=== PATIENT | female | born 1995 | race Caucasian/White ===

== ENCOUNTER 2017-09-07 12:15 | Emergency (ER) | payer MEDICAID ==
[~2017-09-07] VITALS: Ht 162.6 cm; Wt 68.5 kg
--- NOTE | 2017-09-07 12:19 | NUR ---
EKG PERFORMED IN TRIAGE.
[2017-09-07 12:23] VITALS: BP 127/75
--- NOTE | 2017-09-07 12:29 | NUR ---
EKG SHOWN TO DR. HERNANDEZ. PT IS STABLE TO WAIT IN ER LOBBY FOR A BED/OF CHAIR.
--- NOTE | 2017-09-07 12:34 | NUR ---
PATIENT TO OF#1
--- NOTE | 2017-09-07 13:09 | NUR ---
PATIENT MOVED TO BED #3 MONITORED
--- NOTE | 2017-09-07 13:15 | NUR ---
PATIENT PRESENTS TO ED WITH C/O CP AND SOB X 4-5 DAYS . PT STATES SHE FEELS LIKE A PRESSURE TYPE PAIN. DENIES N/V/D; SKIN IS PINK/WARM/DRY; AAOX4 WITH EVEN AND STEADY GAIT; LUNGS CLEAR BL; HR EVEN AND REGULAR; PT DENIES ANY FEVER OR COUGH AT THIS TIME; PATIENT STATES PAIN OF 3/10 AT THIS TIME;PATIENT POSITIONED FOR COMFORT; HOB ELEVATED; BEDRAILS UP X2; BED DOWN. ALL MONITORS IN PLACED;ER MD MADE AWARE OF PT STATUS.
--- NOTE | 2017-09-07 13:29 | NUR ---
DR HERNANDEZ EVALUATING PT.
--- NOTE | 2017-09-07 13:43 | NUR ---
LAB AT BEDSIDE
[2017-09-07 13:53] LABS: BASOPHILS # (AUTO) 0.2 K/uL (0.00-0.22); BASOPHILS % (AUTO) 2.3 % (0.0-2.0); EOSINOPHILS # (AUTO) 0.1 K/uL (0-0.4); EOSINOPHILS % (AUTO) 0.9 % (0.0-4.0); HEMATOCRIT 41.8 % (36-48); HEMOGLOBIN 13.8 g/dL (12.0-16.0); LYMPHOCYTES # (AUTO) 0.9 K/uL (2.5-16.5); LYMPHOCYTES % (AUTO) 9.8 % (20.5-51.1); MEAN CORPUSCULAR HEMOGLOBIN 30 pg (27-31); MEAN CORPUSCULAR HGB CONC 33 g/dL (33-37); MEAN CORPUSCULAR VOLUME 92 fL (80-94); MONOCYTES # (AUTO) 0.8 K/uL (0.8-1.0); MONOCYTES % (AUTO) 8.7 % (1.7-9.3); NEUTROPHILS # (AUTO) 7.6 K/uL (1.8-7.7); NEUTROPHILS % (AUTO) 78.3 % (42.2-75.2); PLATELET COUNT (AUTO) 240 K/uL (140-450); RED BLOOD CELL COUNT(AUTO) 4.55 MIL/uL (4.20-5.40); RED CELL DISTRIBUTION WIDTH 12.1 % (11.6-13.7); WHITE BLOOD COUNT (AUTO) 9.6 K/uL (4.8-10.8)
[2017-09-07 14:18] LABS: ALBUMIN 3.9 g/dL (3.4-5.0); ANION GAP 10.3 (8-16); CREATININE 0.5 mg/dL (0.6-1.3); POTASSIUM 4.3 mmol/L (3.5-5.1); TOTAL BILIRUBIN 0.6 mg/dL (0.0-1.0)
[2017-09-07 15:16] VITALS: BP 110/68
--- NOTE | 2017-09-07 15:16 | NUR ---
Patient discharged with v/s stable. Written and verbal after care instructions given and explained. Patient verbalized understanding. Ambulatory with steady gait. All questions addressed prior to discharge. Advised to follow up with PMD.
== END 2017-09-07 15:16 | disposition home or self-care (01) ==
LOC: MED 12:15
DX: R07.89 Other chest pain (principal); R06.02 Shortness of breath; R00.2 Palpitations
CPT/HCPCS: 36415; 71045; 80053; 83880; 84443; 84484; 85025; 93005; 99285; Q0092

== ENCOUNTER 2023-03-18 06:19 | Inpatient (IN) | payer MEDICAID ==
[~2023-03-18] VITALS: Ht 165.1 cm; Wt 71.7 kg
[2023-03-18 06:25] VITALS: BP 115/66; PULSE 122; RESP 16; TEMP 98.2; O2SAT 98
--- NOTE | 2023-03-18 06:28 | NUR ---
to lobby a/w bed ambulatory
[2023-03-18] MEDS ORDERED: ACETAMINOPHEN EXTRA STRENGTH 500 MG TAB PO ONE (06:45)
[2023-03-18] MEDS ORDERED: LIDOCAINE 5% 1 EA PATCH TP SCH (06:45)
[2023-03-18 07:06] LABS: BASOPHILS % (AUTO) 0.2 % (0.0-2.0); EOSINOPHILS % (AUTO) 0.1 % (0.0-4.0); HEMATOCRIT 35.5 % (36-48); HEMOGLOBIN 12.2 g/dL (12.0-16.0); LYMPHOCYTES % (AUTO) 6.3 % (20.5-51.1); MEAN CORPUSCULAR HEMOGLOBIN 31 pg (27-31); MEAN CORPUSCULAR HGB CONC 34 g/dL (33-37); MEAN CORPUSCULAR VOLUME 89.1 fL (80-94); MONOCYTES % (AUTO) 6.5 % (1.7-9.3); NEUTROPHILS # (AUTO) 13.1 K/uL (1.8-7.7); NEUTROPHILS % (AUTO) 86.9 % (42.2-75.2); PLATELET COUNT (AUTO) 276 K/uL (140-450); RED BLOOD CELL COUNT(AUTO) 3.98 MIL/uL (4.20-5.40); RED CELL DISTRIBUTION WIDTH 13.2 % (11.6-13.7)
--- NOTE | 2023-03-18 07:25 | NUR ---
REPORT RECEIVED FROM HERIBERTO CHU. ASSUMED CARE AT THIS TIME
--- NOTE | 2023-03-18 07:30 | NUR ---
pt awake and at rest. states pain relief. hob positioned per comfort. bed at lowest position, bed rails upx2. call light within reach.
[2023-03-18 07:32] LABS: ANION GAP 14.5 (8-16); CARBON DIOXIDE 24.1 mmol/L (21-32); CREATININE 0.5 mg/dL (0.6-1.3); POTASSIUM 3.6 mmol/L (3.5-5.1); TOTAL BILIRUBIN 0.6 mg/dL (0.0-1.0)
[2023-03-18 07:45] VITALS: O2SAT 98
--- NOTE | 2023-03-18 07:45 | NUR ---
28YO FEMALE PT C/O CRAMPING LOWER ABD PAIN AND NAUSEA X3DAYS. REPORTS RECENT +. LMP 12/16/22 G1A0. DENIES V/D, CHEST PAIN, SOB, FEVER , CHILLS OR TAKING MEDICATION. PT AAOX4, HOB POSITIONEDE PER COMFORT. ON RESIDENTIAL APPRAISER. CALL LIGHT WITHIN REACH. HX: DENIES NKA
[2023-03-18] MEDS ORDERED: cefTRIAXone 1,000 MG VIAL ONE (07:56)
[2023-03-18 07:57] LABS: APPEARANCE,URINE CLEAR (CLEAR); BILIRUBIN,URINE NEGATIVE (NEGATIVE); BLOOD, URINE TRACE-I (NEGATIVE); COLOR,URINE YELLOW (YELLOW); LEUKOCYTE ESTERASE ,URINE 2+ (NEGATIVE); NITRITE, URINE POSITIVE (NEGATIVE); UGLUCOSE 1+ (NEGATIVE)
--- NOTE | 2023-03-18 08:00 | NUR ---
MD PETTY AT BEDSIDE FOR EVALUATION
[2023-03-18] MEDS ORDERED: METOCLOPRAMIDE 10 MG/2 ML INJ VIAL IVP ONE (08:10)
[2023-03-18] MEDS ORDERED: NACL 0.9% 1,000 ML IV ONE ×2 (08:10→08:45)
[2023-03-18 08:41] LABS: RBC,URINE 11-20 (MOD) /HPF (0-5); TRICHOMONAS,URINE None Seen /HPF (None Seen); YEAST,URINE None Seen /HPF (None Seen)
--- NOTE | 2023-03-18 13:21 | NUR ---
PT OOB TO RESTROOM.
--- NOTE | 2023-03-18 13:28 | NUR ---
Tolu to be transferred to MED/SURG. Reviewed nursing notes, lab reports,Physicians Orders. Report called to Fidel. Pt transfered by w/chau
[2023-03-18 13:45] VITALS: PULSE 76; RESP 18; TEMP 98.5; O2SAT 98
--- NOTE | 2023-03-18 13:45 | NUR ---
PATIENT ARRIVED ON MST UNIT, ABLE TO AMBULATE TO BED WITH STEADY GAIT. NO DISTRESS NOTED. PAIN WITHIN TOLERABLE. IV SITE INTACT, PATENT. ORIENTED PATIENT TO ROOM AND CALL LIGHT. REVIEWED PLAN OF CARE WITH PATIENT. VERBALIZED UNDERSTANDING. SAFETY MEASURES IN PLACE, CALL LIGHT WITHIN REACH. WILL CONTINUE TO MONITOR.
--- NOTE | 2023-03-18 17:00 | NUR ---
PATIENT LYING DOWN IN BED, MOTHER AT BEDSIDE. NO DISTRESS NOTED. PAIN WITHIN TOLERABLE. WILL CONTINUE TO MONITOR.
[2023-03-18] MEDS: NACL 0.9% 1,000 ML IV SCH (18:26)
--- NOTE | 2023-03-18 19:05 | NUR ---
Pt resting in bed, complains of mild pain 5/10, offered pain medication, patient refused pain medication at the moment. Call light within reach, bed at lowest position. Plan of care discussed, patient verbalizes understanding. Pt educated on proper elicia care. Patient verbalizes understanding.
--- NOTE | 2023-03-18 19:20 | NUR ---
GAVE REPORT TO PROOF COIN COLLECTOR NURSE FOR CONTINUITY OF CARE. PATIENT IN STABLE CONDITION.
[2023-03-18 20:00] VITALS: PULSE 98; RESP 18; O2SAT 99
--- NOTE | 2023-03-18 20:00 | NUR ---
pt denies any pain at the moment, currently watching TV and comfortable in bed.
[2023-03-18] MEDS: ACETAMINOPHEN 325 MG TAB PO PRN (21:55)
--- NOTE | 2023-03-19 | NUR ---
PATIENT IS ASLEEP. BREATHING EVEN AND UNLABORED. CALL LIGHT REMAINS WITHIN REACH.
--- NOTE | 2023-03-19 02:10 | NUR ---
PATIENT IS RESTING ON BED, CALL LIGHT WITHIN REACH. BREATHING IS UNLABORED. DENIES ANY PAIN OR DISCOMFORT AT THE MOMENT.
[2023-03-19] MEDS: NACL 0.9% 1,000 ML IV SCH ×3 (03:40→23:19)
[2023-03-19 04:00] VITALS: BP 106/43; PULSE 95; RESP 18; TEMP 97.7; O2SAT 99
[2023-03-19 06:11] LABS: HEMATOCRIT 32.1 % (36-48); MEAN CORPUSCULAR HEMOGLOBIN 31 pg (27-31); MEAN CORPUSCULAR HGB CONC 34 g/dL (33-37); MEAN CORPUSCULAR VOLUME 89.4 fL (80-94); PLATELET COUNT (AUTO) 237 K/uL (140-450); RED BLOOD CELL COUNT(AUTO) 3.59 MIL/uL (4.20-5.40); RED CELL DISTRIBUTION WIDTH 13.2 % (11.6-13.7); WHITE BLOOD COUNT (AUTO) 13.6 K/uL (4.8-10.8)
[2023-03-19 06:33] LABS: ANION GAP 13.4 (8-16); CREATININE 0.4 mg/dL (0.6-1.3); POTASSIUM 3.4 mmol/L (3.5-5.1)
--- NOTE | 2023-03-19 06:54 | NUR ---
PT IS ASLEEP I N BED, CALL LIGHT WITHIN REACH. RESPIRATION UNLABORED. SAEFTY MEASURES IMPLEMENTED THROUGH OUT THE SHIFT. NO DISTRESS OR DISCOMFORT NOTED.
[2023-03-19 08:00] VITALS: BP 110/77; PULSE 100; PULSE 96; RESP 18; TEMP 99; O2SAT 100
--- NOTE | 2023-03-19 08:00 | NUR ---
NURSE REPORT REPORT OBTAINED FROM CARE TECHNICIAN NURSE JESSICA AND THIS NURSE ASSUMED CARE OF PATIENT. VSS. AFEB. NO C/O PAIN OR DISCOMFORT. MED SURG. GLORIA MONTIEL RN
[2023-03-19 08:05] LABS: LYMPHOCYTES % (MANUAL) 5 % (20-46); MONOCYTES % (MANUAL) 9 % (5-12)
--- NOTE | 2023-03-19 09:14 | NUR ---
PATIENT HAS BEEN SCREENED AND CATEGORIZED HIGH NUTRITION RISK. PATIENT WILL BE SEEN WITHIN 1-2 DAYS OF ADMISSION. 03/18/23-03/20/[address] REFERRAL RECEIVED FOR NAUSEA > 3 DAYS
[2023-03-19] MEDS: ACETAMINOPHEN 325 MG TAB PO PRN ×3 (09:32→22:09)
--- NOTE | 2023-03-19 10:32 | NUR ---
NURSE NOTES ACETAMINOPHEN 650 MG PO GIVEN FOR ABREU WITH RELIEF. GLORIA MONTIEL RN
--- NOTE | 2023-03-19 14:58 | NUR ---
03/19/23 RD INITIAL ASSESSMENT COMPLETED. PLEASE REFER TO NUTRITION ASSESSMENT UNDER CARE ACTIVITY FOR ESTIMATED NUTRITIONAL NEEDS. 1. CONTINUE REGULAR DIET TOLERATED 2. MONITOR PO INTAKE AND GI SYMPTOMS 3. RD TO FOLLOW-UP 3-5 DAYS, MODERATE RISK MERLE PENG RD
--- NOTE | 2023-03-19 15:37 | NUR ---
NURSE NOTES ACETAMINOPHEN 650 MG PO GIVEN FOR ABREU WITH RELIEF. GLORIA MONTIEL RN
[2023-03-19] MEDS ORDERED: KCL 20 MEQ IN 100 mL PREMIX 200 ML IV ONE (19:05)
--- NOTE | 2023-03-19 19:10 | NUR ---
NURSE REPORT REPORT GIVEN TO NIGHT NURSE JESSICA TO ASSUME CARE. ALL QUESTIONS ANSWERED. GLORIA MONTIEL RN
--- NOTE | 2023-03-19 19:16 | NUR ---
NURSE NOTES DR ALEJANDRO WAS NOTIFIED OF K OF 3.4. HE ORDERED 40 MEQ KCL RIDER. STARTED AT THIS TIME. GLORIA MONTIEL RN
--- NOTE | 2023-03-19 19:18 | NUR ---
CHANGE OF SHIFT REPORT RECEIVED FROM MORNING SHIFT. PT COMPLAINS OF 5/10 HEADACHE AND MILD RIGHT UPPER ARM PAIN, OFFERED PAIN MEDICATION. PT DENIED THE PAIN MEDS AT THE MOMENT. CALL LIGHT WITHIN REACH. SAFETY PRECAUTIONS IN PLACE. VITAL SIGNS WITHIN NORMAL LIMIT. CONTINUING PLAN OF CARE.
[2023-03-19 20:00] VITALS: BP 113/56; PULSE 89; RESP 16; TEMP 89; O2SAT 100
--- NOTE | 2023-03-19 20:30 | NUR ---
PATIENT DENIES PAIN AT THIS TIME. PER PT: " I FEEL BETTER." CALL LIGHT IN REACH, ENCOURAGED TO CALL IF ASSISTANCE IS NEEDED, PT VERBALLY ACKNOWLEDGED.
--- NOTE | 2023-03-20 00:15 | NUR ---
ROUNDING DONE, PT IS ASLEEP. NO S/SX OF PAIN NOR DISCOMFORT. CALL LIGHT REMAINS WITHIN REACH.
[2023-03-20 04:00] VITALS: BP 103/50; PULSE 95; RESP 16; TEMP 98.1; O2SAT 99
--- NOTE | 2023-03-20 04:00 | NUR ---
PT ASLEEP, CALL LIGHT WITHIN REACH. NO DISCOMFORT OR DISTRESS NOTED.
--- NOTE | 2023-03-20 06:00 | NUR ---
PT RESTING IN BED. DENIES ANY PAIN OR DISCOMFORT AT THE MOMENT. CALL LIGHT WITHIN REACH.
[2023-03-20 06:33] LABS: ANION GAP 12.1 (8-16); BASOPHILS % (AUTO) 0.4 % (0.0-2.0); CARBON DIOXIDE 23.4 mmol/L (21-32); CREATININE 0.4 mg/dL (0.6-1.3); EOSINOPHILS % (AUTO) 0.4 % (0.0-4.0); HEMATOCRIT 31.1 % (36-48); HEMOGLOBIN 10.9 g/dL (12.0-16.0); LYMPHOCYTES # (AUTO) 0.9 K/uL (2.5-16.5); LYMPHOCYTES % (AUTO) 10.2 % (20.5-51.1); MEAN CORPUSCULAR HEMOGLOBIN 31 pg (27-31); MEAN CORPUSCULAR HGB CONC 35 g/dL (33-37); MEAN CORPUSCULAR VOLUME 89.1 fL (80-94); MONOCYTES # (AUTO) 0.8 K/uL (0.8-1.0); MONOCYTES % (AUTO) 9.2 % (1.7-9.3); NEUTROPHILS # (AUTO) 7.3 K/uL (1.8-7.7); NEUTROPHILS % (AUTO) 79.8 % (42.2-75.2); PLATELET COUNT (AUTO) 255 K/uL (140-450); POTASSIUM 3.5 mmol/L (3.5-5.1); RED BLOOD CELL COUNT(AUTO) 3.49 MIL/uL (4.20-5.40); RED CELL DISTRIBUTION WIDTH 13.2 % (11.6-13.7); WHITE BLOOD COUNT (AUTO) 9.2 K/uL (4.8-10.8)
--- NOTE | 2023-03-20 07:05 | NUR ---
RECEIVED REPORT FROM VEHICLE WASHER NURSE FOR CONTINUITY OF CARE. PT STABLE AT THIS TIME WITH NO SIGN OF DISTRESS
[2023-03-20 08:00] VITALS: BP 106/57; PULSE 67; RESP 17; TEMP 98.1; O2SAT 99
[2023-03-20] MEDS: NACL 0.9% 1,000 ML IV SCH (09:37)
[2023-03-20] MEDS ORDERED: PNV1CAPS15 PO (11:04)
[2023-03-20] MEDS ORDERED: CEFP200T20 PO (11:04)
[2023-03-20 15:06] VITALS: BP 106/57; PULSE 67; RESP 17; TEMP 98.1
== END 2023-03-20 15:38 | disposition home or self-care (01) | DRG 566 ==
LOC: MED 06:19 → MMU 08:51 → MTU 13:32
PROVIDERS: ADMIT Family Medicine; ATTEND Family Medicine
DX: O23.01 Infections of kidney in pregnancy, first trimester (principal); O98.811 Other maternal infectious and parasitic diseases complicating pregnancy, first trimester; O99.891 Other specified diseases and conditions complicating pregnancy; R73.9 Hyperglycemia, unspecified; O25.11 Malnutrition in pregnancy, first trimester; O21.1 Hyperemesis gravidarum with metabolic disturbance; Z3A.12 12 weeks gestation of pregnancy
CPT/HCPCS: 36415; 76801; 80048; 80053; 81001; 83036; 83605; 83690; 83735; 84702; 85025; 86900; 86901; 87040; 87081; 87086; 96361; 96374; 96375; 99285; J0696; J2765; J3480; J7060; Q0092